=== PATIENT | male | born 1945 | race Caucasian/White ===

== ENCOUNTER 2016-10-22 05:05 | Observation (INO) | payer OTHER, MEDICARE ==
[~2016-10-22] VITALS: Ht 170.2 cm; Wt 98.0 kg
[2016-10-22 05:08] VITALS: BP 202/91; PULSE 68; RESP 16; TEMP 97.9; O2SAT 97
[2016-10-22] MEDS ORDERED: ATOR1TAB18 PO (05:26)
[2016-10-22] MEDS ORDERED: TAMS0.4C4 PO (05:30)
[2016-10-22] MEDS ORDERED: DIVA500T3 PO (05:30)
[2016-10-22] MEDS ORDERED: CLOP75TA PO (05:30)
[2016-10-22] MEDS ORDERED: BUPR1TAB74 PO (05:30)
[2016-10-22] MEDS ORDERED: POTA-163 PO (05:30)
[2016-10-22] MEDS ORDERED: METO50TA PO (05:30)
[2016-10-22] MEDS ORDERED: DOXA1TAB34 PO (05:30)
[2016-10-22] MEDS ORDERED: FERR325T PO (05:30)
[2016-10-22] MEDS ORDERED: HYDR25TA5 PO (05:30)
--- NOTE | 2016-10-22 05:33 | PD ---
HPI Chief Complaint: Chest Pain Time Seen by Provider: 05:22 Travel History International Travel<30 days: No Contact w/Intl Traveler<30days: No Traveled to known affect area: No History of Present Illness HPI 71yo M with PMH of HTN, CAD with cardiac cath 2014 presents to the ED with c/o chest pain that woke him up from sleep. Pain was midsternal and radiating to the right and it was constant and lasted for about 40 min. Associated with sob. Denies any fever, nausea, vomiting, abdominal pain, weakness or numbness. Pt has not had chest pain since the stent placement. Has not had recent cardiac stress test. 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 [facility] Past Medical History Cardiovascular Problems: Yes (STENTx1) Past Surgical History Tonsillectomy: Yes Social History Alcohol Use: Yes Tobacco Use: No Substance Use: No Allergies-Medications (Allergen,Severity, Reaction): Coded Allergies: No Known Allergies (Unverified , 10/22/16) Reported Meds & Prescriptions Reported Meds & Active Scripts Active Plavix (Clopidogrel Bisulfate) 75 Mg Tab 75 Mg PO DAILY Reported Bupropion HCl ER 12 HR (Bupropion HCl) 100 Mg Tab 100 Mg PO BID Potassium Chloride ER (Potassium Chloride) 20 Meq Tab 20 Meq PO DAILY Hydrochlorothiazide 25 Mg Tab 25 Mg PO DAILY Ferrous Sulfate 325 Mg Tab 325 Mg PO BID Doxazosin (Doxazosin Mesylate) 4 Mg Tab 4 Mg PO HS Divalproex ER (Divalproex Sodium) 500 Mg Tab 1,000 Mg PO DAILY Atorvastatin (Atorvastatin Calcium) 80 Mg Tab 80 Mg PO HS Review of Systems Except as stated in HPI: all other systems reviewed are Neg Physical Exam Narrative GENERAL: 71yo M not in distress. SKIN: Focused skin assessment warm/dry. HEAD: Atraumatic. Normocephalic. EYES: Pupils equal and round. No scleral icterus. No injection or drainage. ENT: No nasal bleeding or discharge. Mucous membranes pink and moist. NECK: Trachea midline. No JVD. CARDIOVASCULAR: Regular rate and rhythm. No murmur appreciated. RESPIRATORY: No accessory muscle use. Clear to auscultation. Breath sounds equal bilaterally. GASTROINTESTINAL: Abdomen soft, non-tender, nondistended. MUSCULOSKELETAL: No obvious deformities. No clubbing. No cyanosis. +Trace bilateral lower ext edema. NEUROLOGICAL: Awake and alert. No obvious cranial nerve deficits. Motor grossly within normal limits. Normal speech. PSYCHIATRIC: Appropriate mood and affect; insight and judgment normal. Data Data Last Documented VS Vital Signs Date Time Temp Pulse Resp B/P Pulse Ox O2 Delivery O2 Flow Rate FiO2 10/22/16 07:07 18 97 Room Air 10/22/16 07:07 59 150/71 10/22/16 05:08 97.9 Orders Basic Metabolic Panel (Bmp) (10/22/16 05:33) Ckmb (Isoenzyme) Profile (10/22/16 05:33) Complete Blood Count With Diff (10/22/16 05:33) Magnesium (Mg) (10/22/16 05:33) Prothrombin Time / Inr (Pt) (10/22/16 05:33) Act Partial Throm Time (Ptt) (10/22/16 05:33) Troponin I (10/22/16 05:33) Chest, Single Ap (10/22/16 05:33) Ecg Monitoring (10/22/16 05:33) Bilateral Bp Monitoring (10/22/16 05:33) Iv Access Insert/Monitor (10/22/16 05:33) Oximetry (10/22/16 05:33) Oxygen Administration (10/22/16 05:33) Aspirin (Aspirin) (10/22/16 05:45) Sodium Chloride 0.9% Flush (Ns Flush) (10/22/16 05:45) Nitroglycerin Sl (Nitrostat Sl) (10/22/16 05:45) CKMB (10/22/16 05:40) CKMB% (10/22/16 05:40) Admit Order (Ed Use Only) (10/22/16 07:12) Labs Laboratory Tests Test 10/22/16 10/22/16 05:40 07:06 Prothrombin Time 10.5 SEC Prothromb Time International 1.0 RATIO Ratio Activated Partial 21.0 SEC Thromboplast Time Sodium Level 139 MEQ/L Potassium Level 4.1 MEQ/L Chloride Level 103 MEQ/L Carbon Dioxide Level 27.4 MEQ/L Anion Gap 9 MEQ/L Blood Urea Nitrogen 19 MG/DL Creatinine 1.26 MG/DL Estimat Glomerular Filtration 56 ML/MIN Rate Random Glucose 91 MG/DL Calcium Level 8.9 MG/DL Magnesium Level 1.8 MG/DL Total Creatine Kinase 183 U/L Creatine Kinase MB 0.9 NG/ML Troponin I LESS THAN 0.02 NG/ML White Blood Count 5.7 TH/MM3 Red Blood Count 4.32 MIL/MM3 Hemoglobin 13.1 GM/DL Hematocrit 38.4 % Mean Corpuscular Volume 89.0 FL Mean Corpuscular Hemoglobin 30.4 PG Mean Corpuscular Hemoglobin 34.2 % Concent Red Cell Distribution Width 14.1 % Platelet Count 227 TH/MM3 Mean Platelet Volume 7.3 FL Neutrophils (%) (Auto) 54.8 % Lymphocytes (%) (Auto) 29.4 % Monocytes (%) (Auto) 13.1 % Eosinophils (%) (Auto) 2.3 % Basophils (%) (Auto) 0.4 % Neutrophils # (Auto) 3.1 TH/MM3 Lymphocytes # (Auto) 1.7 TH/MM3 Monocytes # (Auto) 0.7 TH/MM3 Eosinophils # (Auto) 0.1 TH/MM3 Basophils # (Auto) 0.0 TH/MM3 CBC Comment DIFF FINAL Differential Comment MDM Medical Decision Making Medical Screen Exam Complete: Yes Emergency Medical Condition: Yes Interpretation(s) EKG: NSR 64bpm. LAD. Q wave III, aVF. Differential Diagnosis ACS vs. atypical chest pain Narrative Course 71yo M with CAD, HTN here with chest pain. Troponin negative. CXR showed mildly underinflated examination. No acute finding. Pt given aspirin 325mg PO. Pt has not had any chest pain work up recently so will admit to chest pain center for further work up. Diagnosis Primary Impression: Chest pain Qualified Code: R07.9 - Chest pain, unspecified type Admitting Information Admitting Physician Requests: Observation Scripts Clopidogrel (Plavix)75 Mg Tab75 Mg PO DAILY #30 TAB Ref 0 Prov:Hung Calderon 10/22/16 Em Payton DO Oct 22, 2016 05:33
[2016-10-22] MEDS ORDERED: SODIUM CHLORIDE 0.9% FLUSH 10 ML FLUSH IVF PRN (05:45)
[2016-10-22] MEDS ORDERED: ASPIRIN 325 MG TAB PO ONE (05:45)
[2016-10-22] MEDS ORDERED: NITROGLYCERIN 0.4 MG SL 25 TABS/BTL SL PRN (05:45)
[2016-10-22 06:10] LABS: PROTHROMBIN TIME - PATIENT 10.5 SEC (9.8-11.6)
[2016-10-22 06:11] LABS: BLOOD UREA NITROGEN 19 MG/DL (7-18); CHLORIDE 103 MEQ/L (98-107); CREATINE KINASE 183 U/L (39-308); GLOMERULAR FILTRATION RATE 56 ML/MIN (>89); MAGNESIUM 1.8 MG/DL (1.5-2.5); SODIUM (NA) 139 MEQ/L (136-145)
--- NOTE | 2016-10-22 06:16 | RADRPT ---
EXAM DATE/TIME: 10/22/2016 05:39 [facility] COMPARISON: No previous studies available for comparison. INDICATIONS : Chest pain. MEDICAL HISTORY : Hypertension. SURGICAL HISTORY : Coronary artery stent. ENCOUNTER: Initial ACUITY: 1 day PAIN SCORE: 6/10 LOCATION: Bilateral chest FINDINGS: Portable AP view of the chest demonstrates a normal-sized cardiac silhouette. No effusion, consolidat ion, or pneumothorax is visualized. The bones and soft tissues demonstrate no acute abnormality. CONCLUSION: Mildly underinflated examination. No acute finding is identified. Lopez Rosales MD on October 22, 2016 at 6:14 Board Certified Radiologist. This report was verified electronically.
[2016-10-22 06:20] LABS: ANION GAP 9 MEQ/L (5-15); BICARBONATE 27.4 MEQ/L (21.0-32.0); POTASSIUM 4.1 MEQ/L (3.5-5.1)
[2016-10-22 06:33] LABS: CKMB 0.9 NG/ML (0.5-3.6)
[2016-10-22 07:07] VITALS: BP_SYST 150; BP_SYST 152; BP_DIAS 68; BP_DIAS 71; PULSE 59; PULSE 60; RESP 18; O2SAT 97
[2016-10-22 07:17] LABS: AUTOMATED NEUTROPHIL # 3.1 TH/MM3 (1.8-7.7); BASOPHIL % 0.4 % (0.0-2.0); EOSINOPHIL # 0.1 TH/MM3 (0-0.4); EOSINOPHIL % 2.3 % (0.0-4.0); HEMATOCRIT 38.4 % (39.0-51.0); HEMO FLAGS DIFF FINAL; LYMPH % 29.4 % (9.0-44.0); LYMPHOCYTE # 1.7 TH/MM3 (1.0-4.8); MEAN CORPUSCULAR HEMOGLOBIN 30.4 PG (27.0-34.0); MEAN CORPUSCULAR HGB CONC 34.2 % (32.0-36.0); MONO % 13.1 % (0.0-8.0); NEUT % 54.8 % (16.0-70.0); PLATELET COUNT 227 TH/MM3 (150-450); RED BLOOD COUNT 4.32 MIL/MM3 (4.50-5.90); RED CELL DISTRIBUTION WIDTH 14.1 % (11.6-17.2); WHITE BLOOD COUNT 5.7 TH/MM3 (4.0-11.0)
[2016-10-22 10:43] VITALS: BP 170/82; PULSE 83; RESP 18; O2SAT 98
[2016-10-22] MEDS ORDERED: ONDANSETRON HCL 4 MG/2 ML VIAL IV PRN (11:00)
[2016-10-22] MEDS ORDERED: SODIUM CHLORIDE 0.9% FLUSH 5 ML FLUSH IVF PRN (11:00)
[2016-10-22] MEDS ORDERED: ALPRAZolam 0.25 MG TAB PO PRN (11:00)
[2016-10-22] MEDS ORDERED: ACETAMINOPHEN/HYDROcodone 325 MG/7.5 MG TAB PO PRN (11:00)
[2016-10-22] MEDS ORDERED: ACETAMINOPHEN 500 MG CPLT PO PRN (11:00)
[2016-10-22] MEDS ORDERED: POTASSIUM CHLORIDE 20 MEQ CONTROLLED RELEASE TAB PO SCH (11:30)
[2016-10-22] MEDS ORDERED: HYDROCHLOROTHIAZIDE 25 MG TAB PO SCH (11:30)
[2016-10-22] MEDS ORDERED: DIVALPROEX SODIUM E.R. 500 MG TAB PO SCH (11:30)
[2016-10-22] MEDS ORDERED: METOPROLOL TARTRATE 50 MG TAB PO SCH (11:30)
[2016-10-22] MEDS ORDERED: BUPR1TAB70 PO (11:50)
[2016-10-22 11:58] LABS: CREATINE KINASE 71 U/L (39-308)
--- NOTE | 2016-10-22 12:00 | HHI.HP ---
HPI Primary Care Physician [facility] Chief Complaint Chest pain History of Present Illness This is a 71-year-old male with history of CAD with stenting October 2014 with a complaint of chest discomfort. Patient states that the discomfort in his chest woke him up around 3:30 this morning. It was located in the center of his chest and radiated to the right side. It felt like someone sitting on his chest. It lasted 30-40 minutes. He was short of breath. No nausea or diaphoresis. He states the discomfort is similar to the discomfort when he does stent however was not as intense and not as widely dispersed. Denies recent illness. Denies fevers or chills. States he has not had a stress test or heart catheterization since then. 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 Voices compliance with medications. He finished taking Plavix recently. He is on aspirin. Review of Systems General: Patient denies fevers, chills recent, and recent travel HEENT: Patient denies headache, sore throat, difficulty swallowing. Cardiovascular: Has the chest discomfort as mentioned above. Denies sensation of heart beating rapidly or irregularly. No syncope. No diaphoresis Respiratory: Patient was short of breath. Denies inspirational chest discomfort. Denies coughing wheezing or hemoptysis. GI: Patient denies nausea, vomiting, diarrhea, abdominal pain, bloody stools. Musculoskeletal: Patient denies joint pain or edema. Denies calf pain or edema. Neurovascular: Patient denies numbness, tingling, weakness in extremities. Denies headache. Endocrine: Denies polyuria and polydipsia. Hematologic: Denies easy bruising. Skin: Denies rash or itching. Past Family Social History Allergies: Coded Allergies: No Known Allergies (Unverified , 10/22/16) Past Medical History CAD with stenting November 12, 2014 through the [place]. Hypertension, hyperlipidemia, diabetes, BPH. Past Surgical History Heart catheterization with stenting October 2015. Reported Medications Reported Meds & Active Scripts Active Reported Tamsulosin (Tamsulosin HCl) 0.4 Mg Cap 0.4 Mg PO HS Potassium Chloride ER (Potassium Chloride) 20 Meq Tab 20 Meq PO DAILY Metoprolol Tartrate 50 Mg Tab 50 Mg PO BID Hydrochlorothiazide 25 Mg Tab 25 Mg PO DAILY Ferrous Sulfate 325 Mg Tab 325 Mg PO BID Doxazosin (Doxazosin Mesylate) 4 Mg Tab 4 Mg PO DAILY Divalproex ER (Divalproex Sodium) 500 Mg Tab 1,000 Mg PO DAILY Bupropion HCl ER 12 HR (Bupropion HCl) 200 Mg Tab 200 Mg PO Q12HR Atorvastatin (Atorvastatin Calcium) 80 Mg Tab 80 Mg PO HS Active Ordered Medications Current Medications Medications (Trade) Dose Ordered Sig/Marsha Route Start Time Stop Time Status Last Admin (NS Flush) 2 ml UNSCH PRN IVF 10/22/16 05:45 (Nitrostat Sl) 0.4 mg Q5M PRN SL 10/22/16 05:45 (NS Flush) 2 ml UNSCH PRN IVF 10/22/16 11:00 (NS Flush) 2 ml BID IVF 10/22/16 21:00 (Tylenol) 500 mg Q4H PRN PO 10/22/16 11:00 ([place] 7.5-325 Mg) 1 tab Q4H PRN PO 10/22/16 11:00 (Zofran Inj) 4 mg Q6H PRN IV 10/22/16 11:00 (Aspirin) 325 mg DAILY PO 10/23/16 09:00 (Xanax) 0.25 mg Q8H PRN PO 10/22/16 11:00 (Lipitor) 80 mg HS PO 10/22/16 21:00 (Depakote Er) 1,000 mg DAILY PO 10/22/16 11:30 (Cardura) 4 mg DAILY PO 10/23/16 09:00 (Ferrous Sulfate) 325 mg BID PO 10/22/16 21:00 (Hydrodiuril) 25 mg DAILY PO 10/22/16 11:30 (Lopressor) 50 mg BID PO 10/22/16 11:30 (KCl) 20 meq DAILY PO 10/22/16 11:30 (Flomax) 0.4 mg HS PO 10/22/16 21:00 Family History Family history of CAD. Social History Patient quit smoking about 30 years ago prior that he smoked anywhere from 1-3 packs of cigarettes daily. Physical Exam Vital Signs Vital Signs Date Time Temp Pulse Resp B/P Pulse Ox O2 Delivery O2 Flow Rate FiO2 10/22/16 10:43 83 18 170/82 98 Room Air 10/22/16 07:07 18 97 Room Air 10/22/16 07:07 59 18 150/71 97 Room Air 10/22/16 07:07 60 150/71 152/68 10/22/16 06:21 95 Room Air 10/22/16 05:08 97.9 68 16 202/91 97 Room Air Physical Exam GENERAL: This is a well-nourished, well-developed patient, in no apparent distress. Patient speaks in clear complete sentences. Patient is pleasant. HEENT: Head is atraumatic and normocephalic. Neck is supple without lymphadenopathy and trachea is midline. No JVD or carotid bruits. CARDIOVASCULAR: Regular rate and rhythm without murmurs, gallops, or rubs. RESPIRATORY: Clear to auscultation. Breath sounds equal bilaterally. No wheezes , rales, or rhonchi. Chest wall is nontender. No use of accessory muscles. GASTROINTESTINAL: Abdomen is nontender, nondistended. Abdomen soft. No obvious pulsatile mass or bruit. No CVA tenderness. Strong femoral pulses bilaterally. Normal bowel sounds in all quadrants. MUSCULOSKELETAL: Patient is moving upper and lower extremities freely. No calf tenderness or edema, no Homans sign. Strong pulses in upper and lower extremities. NEUROLOGICAL: Patient is alert and oriented. Cranial nerves 2-12 are grossly intact. No focal deficits and speech is clear. SKIN: No rash and turgor is normal. Laboratory Laboratory Tests Test 10/22/16 10/22/16 05:40 07:06 Prothrombin Time 10.5 Prothromb Time International 1.0 Ratio Activated Partial 21.0 Thromboplast Time Sodium Level 139 Potassium Level 4.1 Chloride Level 103 Carbon Dioxide Level 27.4 Anion Gap 9 Blood Urea Nitrogen 19 Creatinine 1.26 Estimat Glomerular Filtration 56 Rate Random Glucose 91 Calcium Level 8.9 Magnesium Level 1.8 Total Creatine Kinase 183 Creatine Kinase MB 0.9 Troponin I LESS THAN 0.02 White Blood Count 5.7 Red Blood Count 4.32 Hemoglobin 13.1 Hematocrit 38.4 Mean Corpuscular Volume 89.0 Mean Corpuscular Hemoglobin 30.4 Mean Corpuscular Hemoglobin 34.2 Concent Red Cell Distribution Width 14.1 Platelet Count 227 Mean Platelet Volume 7.3 Neutrophils (%) (Auto) 54.8 Lymphocytes (%) (Auto) 29.4 Monocytes (%) (Auto) 13.1 Eosinophils (%) (Auto) 2.3 Basophils (%) (Auto) 0.4 Neutrophils # (Auto) 3.1 Lymphocytes # (Auto) 1.7 Monocytes # (Auto) 0.7 Eosinophils # (Auto) 0.1 Basophils # (Auto) 0.0 CBC Comment DIFF FINAL Differential Comment Result Diagram: 10/22/16 0706 10/22/16 0540 Assessment and Plan Assessment and Plan * Chest pain: Patient will continue to have serial cardiac enzymes and EKGs for ruling out purposes. He will be seen by Dr. Barker in the chest pain center. He will likely a Lexiscan and if he rules out. Patient will be discharged home if stress test were to be nonischemic. * CAD: This will be reassessed for stress testing. He should follow-up with his video surveillance technician after discharge. * Hypertension: Continue current medication. * Hyperlipidemia: Continue current medication. * BPH: Continue current medication. Hung Calderon Oct 22, 2016 12:00
[2016-10-22 12:09] VITALS: BP 153/74; PULSE 63; RESP 20; TEMP 97.7; O2SAT 97
[2016-10-22] MEDS ORDERED: REGADENOSON INJ 0.4 MG/5 ML SYR ONE (13:38)
--- NOTE | 2016-10-22 14:47 | RADRPT ---
EXAM DATE/TIME: 10/22/2016 12:59 [facility] COMPARISON: No previous studies available for comparison. INDICATIONS : Midsternal chest pain readiating to right chest with dyspnea. Angina. DOSE: 26.9 mCi Tc99m Myoview at stress. 8.6 mCi Tc99m Myoview at rest. 0.4 mg Lexiscan STRESS SYMPTOMS: Headache. EJECTION FRACTION: 59% MEDICAL HISTORY : Hypercholesterolemia. Hypertension. SURGICAL HISTORY : Tonsillectomy. Coronary artery stent. ENCOUNTER: Initial ACUITY: 1 day PAIN SCALE: 8/10 LOCATION: Midsternal chest TECHNIQUE: The patient underwent pharmacologic stress with infusion of prescribed dose. Continuous ECG tracing was monitored during stress. Gated SPECT imaging was performed after stress and conventional SPECT i maging was performed at rest. The examination was performed on a SPECT/CT scanner, both attenuation and non-corrected datasets were reviewed. FINDINGS: The best perfused myocardium in the anterior anterior lateral wall followed by the septum.. There is no redistribution evident. The ejection fraction is 59% with normal wall motion. CONCLUSION: Negative for stress-induced ischemia Ejection fraction of 59%. RISK CATEGORY: Low (<1% Annual Mortality Rate) Omar Garland MD FACR on October 22, 2016 at 14:44 Board Certified Radiologist. This report was verified electronically.
--- NOTE | 2016-10-22 15:24 | EKG ---
Date Performed: 10/22/2016 Time Performed: 05:26:54 PTAGE: 71 years EKG: Sinus rhythm MARKED LEFT AXIS DEVIATION MODERATE INTRAVENTRICULAR CONDUCTION DELAY ABNORMAL ECG NO PREVIOUS TRACING DOCTOR: Natan Barker Interpretating Date/Time 10/22/2016 15:23:57
--- NOTE | 2016-10-22 15:33 | EKG ---
Date Performed: 10/22/2016 Time Performed: 11:16:25 PTAGE: 71 years EKG: Sinus rhythm MARKED LEFT AXIS DEVIATION POOR PRECORDIAL R-WAVE PROGRESSION ABNORMAL ECG PREVIOUS TRACING : 10/22/2016 05.26 DOCTOR: Natan Barker Interpretating Date/Time 10/22/2016 15:31:22
[2016-10-22 15:40] VITALS: BP 185/89; PULSE 60; RESP 24; TEMP 97.7; O2SAT 96
[2016-10-22] MEDS ORDERED: LISINOPRIL 10 MG TAB PO ONE (15:45)
[2016-10-22] MEDS ORDERED: amLODIPine BESYLATE 5 MG TAB PO SCH (16:15)
[2016-10-22] MEDS ORDERED: PLAV75TA29 PO (16:45)
--- NOTE | 2016-10-22 16:45 | HHI.DCPOC ---
Discharge Care Plan Diagnosis: (1) Chest pain (2) CAD (coronary artery disease) (3) H/O heart artery stent (4) Hypertension (5) Hyperlipidemia Goals to Promote Your Health * To prevent worsening of your condition and complications * To maintain your health at the optimal level Directions to Meet Your Goals Take your medications as prescribed Follow your dietary instruction Follow activity as directed Keep your appointments as scheduled Take your immunizations and boosters as scheduled If your symptoms worsen call your PCP, if no PCP go to Urgent Care Center or Emergency Room Smoking is Dangerous to Your Health. Avoid second hand smoke Call the 24-hour hour crisis hotline for domestic abuse at Hung Calderon Oct 22, 2016 16:45
--- NOTE | 2016-10-22 18:32 | TR ---
Date Performed: 10/22/2016 Time Performed: 13:39:26 DOCTOR: Natan Barker DRUG LIST: CLINICAL HISTORY: REASON FOR TEST: CHEST PAIN REASON FOR ENDING: OBSERVATION: CONCLUSION: Lexiscan stress test was performed under standard four minute protocol. Radionuclide was injected one minute prior to ending the test. Developed headache. No electrocardiographic abnorm alities were present to suggest ischemia. Recovery was quick and uneventful with resolution of headac he, systolic blood pressure became slightly elevated. Nuclear imaging and interpretation are pending. COMMENTS:
[2016-10-22] MEDS ORDERED: FERROUS SULFATE 325 MG (65 MG ELEMENTAL IRON) TAB PO SCH (21:00)
[2016-10-22] MEDS ORDERED: TAMSULOSIN HCL 0.4 MG CAP PO SCH (21:00)
[2016-10-22] MEDS ORDERED: METOPROLOL TARTRATE 25 MG TAB PO SCH (21:00)
[2016-10-22] MEDS ORDERED: ATORVASTATIN 80 MG TAB PO SCH (21:00)
[2016-10-22] MEDS ORDERED: SODIUM CHLORIDE 0.9% FLUSH 5 ML FLUSH IVF SCH (21:00)
[2016-10-23] MEDS ORDERED: DOXAZOSIN MESYLATE 4 MG TAB PO SCH (09:00)
[2016-10-23] MEDS ORDERED: ASPIRIN 325 MG TAB PO SCH (09:00)
== END 2016-10-22 19:29 | disposition home or self-care (01) ==
LOC: NEPE 05:05 → NEDA 07:13 → NEPFCDU 12:17
PROVIDERS: ADMIT Family Medicine; ATTEND Family Medicine
DX: R07.89 Other chest pain (principal); R06.02 Shortness of breath; I25.10 Atherosclerotic heart disease of native coronary artery without angina pectoris; I10 Essential (primary) hypertension; N28.9 Disorder of kidney and ureter, unspecified; N40.0 Benign prostatic hyperplasia without lower urinary tract symptoms; E78.5 Hyperlipidemia, unspecified; E11.9 Type 2 diabetes mellitus without complications; Z87.891 Personal history of nicotine dependence; Z82.49 Family history of ischemic heart disease and other diseases of the circulatory system; Z95.5 Presence of coronary angioplasty implant and graft; Z79.02 Long term (current) use of antithrombotics/antiplatelets; Z79.82 Long term (current) use of aspirin
CPT/HCPCS: 71010; 78452; 80048; 82550; 82552; 83735; 84484; 85025; 85379; 85610; 85730; 93005; 93017; 99285; A9502; G0378; J2785